=== PATIENT | female | born 2000 | race African-American/Black ===

== ENCOUNTER 2019-07-30 16:18 | Emergency (ER) | payer OTHER, SELFPAY ==
[2019-07-30 16:20] VITALS: BP 118/91; PULSE 80; RESP 17; TEMP 36.5; O2SAT 98; BMI 24.3
[2019-07-30 16:33] VITALS: RESP 16
[2019-07-30 16:38] LABS: Bacteria 0 SEEN /hpf (None Seen)
[2019-07-30 16:42] LABS: Color, Urine Yellow (Yellow); Glucose, Dipstick Normal (Normal); Ketone-Dipstick Negative (Negative); Leukocyte Esterase-Dipstick 25 /ul (Negative); Nitrite-Dipstick Negative (Negative); Occult Blood-Urine 150 /ul (Negative); Protein-Dipstick 100 mg/dl (Negative); Specific Gravity, Urine 1.025 (1.002-1.030); Urine Bilirubin Dipstick Negative (Negative); Urine Clarity Sl. Cloudy (Clear); Urine Urobilinogen Normal (Normal)
[2019-07-30 16:47] LABS: Internal QC Validated? YES +Cl - CLEAR BKGD; Pregnancy, Urine Negative Negative
--- NOTE | 2019-07-30 17:00 | ED.VISSUMM ---
- ER Visit Summary Date of Service: 07/30/19 Chief Complaint: Dysuria History of Present Illness: The patient is a 18 F presenting with dysuria. The symptoms have been ongoing for the past week. She has dysuria, urinary frequency and urgency. She denies fever. Denies vaginal discharge. Denies other complaints. Physical Examination: Vitals are stable. Patient is afebrile. Alert no acute distress. HEENT exam is unremarkable. Neck is supple. Lungs are clear and equal bilaterally. Heart is regular rate and rhythm. Abdomen is soft nontender nondistended. No guarding or rebound Back: Nontender Extremities are unremarkable. Skin is warm and dry. Remainder of exam is unremarkable. Emergency Department Course and Treatment: Urine hCG negative. UA shows 0-5 white blood cells, 5-10 red blood cells. Urine culture was sent. Patient declined CT abdomen pelvis. She states she may be starting her period which may explain the blood in her urine. She is requesting discharge home. She will follow-up with her primary care physician. She is advised return to the ED for any worsening complaints. Disposition: Discharge home Impression: Dysuria This note was generated with [employer] dictation software. It may contain incorrect words, spelling, and punctuation that were not noted in review of the chart prior to signing ED Disposition - Plan for ED Patient: Instructions: DYSURIA, Uncertain Cause (Adult) Referrals: Care Physician,No Primary [Primary Care Provider] -
[2019-07-30 17:03] LABS: Red Blood Cells-Urine 5-10 SEEN /hpf (0-5); White Blood Cells 0-5 SEEN /hpf (0-5)
[2019-07-30 17:04] LABS: Squamous Epithelial Cells - UA 0-5 SEEN /hpf (5-10)
[2019-07-30 17:05] LABS: Mucous, Urine 1+ /hpf (<or=2+)
--- NOTE | 2019-07-30 17:56 | ED.DEP ---
ED Disposition - Plan for ED Patient: Instructions: DYSURIA, Uncertain Cause (Adult) Referrals: Care Physician,No Primary [Primary Care Provider] -
[2019-07-30 18:03] VITALS: BP 114/63; PULSE 77; RESP 18; O2SAT 96
== END 2019-07-30 18:03 | disposition home or self-care (01) ==
LOC: ED 17:01
PROVIDERS: Emergency Provider Emergency Medicine
DX: R30.0 Dysuria (principal); R35.0 Frequency of micturition
CPT/HCPCS: 81001; 81025; 87086; 87088; 99282